=== PATIENT | male | born 1965 | race African-American/Black ===

== ENCOUNTER 2018-08-25 16:42 | Emergency (ER) | payer OTHER, SELFPAY ==
[~2018-08-25] VITALS: Ht 180.3 cm; Wt 79.0 kg
[~2018-08-25 16:42] MED LIST: ACET50TA PO; ANEX7.5T PO; IBUP100SUS PO; Xalatan OU
[2018-08-25] MEDS ORDERED: XALA0.007 (16:53)
[2018-08-25] MEDS ORDERED: TIMO0.5S29 (16:53)
[2018-08-25] MEDS ORDERED: NS 1,000 ML IV ONE (17:00)
[2018-08-25 17:11] LABS: BASO # 0.1 10^3/uL (0.0-0.2); BASO % 0.7 % (0.0-1.0); EOS # 0.1 10^3/uL (0.0-0.50); EOS % 0.7 % (0.0-3.0); HEMATOCRIT 40.9 % (42.0-52.0); HEMOGLOBIN 13.4 g/dl (13.5-17.5); LYMPH # 2.1 10^3/uL (1.5-4.5); LYMPH % 25.7 % (24.0-44.0); MEAN CORPUSCULAR HEMOGLOBIN 28.9 pg (27.0-33.0); MEAN CORPUSCULAR HGB CONC 32.8 g/dl (32.0-36.5); MEAN CORPUSCULAR VOLUME 88.3 fl (80.0-96.0); MONO # 0.9 10^3/uL (0.0-0.8); MONO % 10.8 % (0.0-5.0); NEUTROPHILS % 61.9 % (36.0-66.0); PLATELET COUNT, AUTOMATED 269 10^3/uL (150-450); RED BLOOD COUNT 4.63 10^6/uL (4.30-6.10)
--- NOTE | 2018-08-25 17:32 | REP ---
Clinical: Acute chest pain . Comparison: 08/25/2011 . Findings: The mediastinum and cardiac silhouette are stable and within normal limits for portable technique. The lung carbajal are clear without acute consolidation, effusion, or pneumothorax. Skeletal structures are intact. Impression: No acute cardiopulmonary process appreciated. Electronically Signed by Jn Mcintosh MD 08/25/2018 05:24 P
[2018-08-25 17:44] LABS: ALBUMIN 3.8 GM/DL (3.2-5.2); ALT/SGPT 29 U/L (12-78); BILIRUBIN,DIRECT 0.2 MG/DL (0.0-0.2); BILIRUBIN,TOTAL 0.5 MG/DL (0.2-1.0); BLOOD UREA NITROGEN 16 MG/DL (7-18); CALCIUM LEVEL 8.4 MG/DL (8.5-10.1); CARBON DIOXIDE LEVEL 27 MEQ/L (21-32); CHLORIDE LEVEL 107 MEQ/L (98-107); CPK CREATINE PHOSPHOKINASE 264 U/L (39-308); FREE T4 0.82 NG/DL (0.76-1.46); GLOMERULAR FILTRATION RATE > 60.0 (>56); GLUCOSE, FASTING 89 MG/DL (70-100); LIPASE 105 U/L (73-393); MB/CK RELATIVE INDEX 1.29 (< OR =4); POTASSIUM SERUM 4.1 MEQ/L (3.5-5.1); SODIUM LEVEL 140 MEQ/L (136-145); TOTAL PROTEIN 7.4 GM/DL (6.4-8.2); TROPONIN I < 0.02 NG/ML (< 0.10)
[2018-08-25] MEDS ORDERED: KETOROLAC 30 MG/ML VIAL (J1885) IV ONE (18:15)
[2018-08-25] MEDS ORDERED: ISOVUE-370 76% 100ML VIAL (Q9967) As Ordered ONE (18:16)
--- NOTE | 2018-08-25 18:42 | REP ---
Clinical: Acute chest pain. Technique: Axial contrast enhanced images from the thoracic inlet to the upper abdomen using 100 ml Isovue 370 intravenous contrast material with coronal and sagittal re-formations. Findings: Satisfactory enhancement of the pulmonary vasculature is achieved and no filling defects are identified to suggest pulmonary embolus. Thoracic aorta is normal caliber without aneurysm or dissection. Heart and pericardium are normal. Bilateral lung carbajal are well aerated and clear without acute pulmonary parenchymal consolidation or atelectasis. No nodule or mass lesion. No pleural effusion/reaction. No pneumothorax. No adenopathy. Impression: No evidence for pulmonary embolus. No acute pleuroparenchymal or mediastinal process. Electronically Signed by Jn Mcintosh MD 08/25/2018 06:33 P
[2018-08-25] MEDS ORDERED: OXYCODONE/APAP 5MG/325MG(BULK FOR ED) 1 TABLET PO ONE (19:15)
[2018-08-25] MEDS ORDERED: PERCOCET 5MG/325MG TAB PO ONE (19:15)
[2018-08-25] MEDS ORDERED: IBUP-1114 PO (19:16)
[2018-08-25 19:31] VITALS: BP 141/68
[2018-08-25] MEDS: MORPHINE 2 MG/ML 1ML SYRINGE (J2270) IV PRN ×2 (19:33→19:35)
[2018-08-25 19:35] LABS: AMPHETAMINES LEVEL URINE NEGATIVE (NEGATIVE); BARBITURATES URINE NEGATIVE (NEGATIVE); BENZODIAZEPINES URINE NEGATIVE (NEGATIVE); CANNABINOIDS URINE POSITIVE (NEGATIVE); COCAINE METABOLITE URINE NEGATIVE (NEGATIVE); METHADONE URINE NEGATIVE (NEGATIVE); OPIATES URINE NEGATIVE (NEGATIVE); PHENCYCLIDINE URINE NEGATIVE (NEGATIVE)
--- NOTE | 2018-08-25 20:12 | ECGEPIP ---
Stationary ECG Study [facility] - ED Test Date: 2018-08-25 Pat Name: PHILIPPE DIAS Department: Room: - Gender: M Manager Imaging: TC : 1965 Requested By: Joanne Kelly Order Number: [id number] Reading MD: Joanne Kelly Measurements Intervals [place] Rate: 68 P: 35 [place]: 149 QRS: 82 QRSD: 85 T: 73 QT: 366 QTc: 391 Interpretive Statements SINUS RHYTHM WITH OCCASIONAL SUPRAVENTRICULAR PREMATURE COMPLEXES ST ELEVATION, PROBABLY EARLY REPOLARIZATION, CLINICAL CORRELATION INCREASED RATE 08/25/11 Electronically Signed On 08-25-2018 20:12:40 EST by Joanne Kelly
== END 2018-08-25 19:57 | disposition home or self-care (01) ==
LOC: EDBD 16:42 → M ED 16:42
DX: R07.89 Other chest pain (principal); R06.02 Shortness of breath; H40.9 Unspecified glaucoma; Z79.899 Other long term (current) drug therapy; F17.210 Nicotine dependence, cigarettes, uncomplicated
CPT/HCPCS: 71045; 71275; 80048; 80076; 80307; 82550; 82553; 83690; 84439; 84443; 84484; 85025; 93005; 93041; 94760; 96361; 96374; 99285; J1885; Q9967

== ENCOUNTER 2022-11-22 12:32 | Emergency (ER) | payer OTHER ==
[~2022-11-22] VITALS: Ht 175.3 cm; Wt 65.7 kg
[~2022-11-22 12:32] MED LIST changes: -ACET50TA PO; +IBUP-1114 PO; +IBUP100S44 PO; -IBUP100SUS PO; +MAPA500T17 PO; +TIMO0.5S20; +XALA0.007
[2022-11-22] MEDS ORDERED: NORCO, ANEXSIA 5/325MG TABLET (HYDROcodone/ACETAMINOPHEN) PO ONE (15:00)
[2022-11-22 17:05] VITALS: BP 147/77
[2022-11-22] MEDS ORDERED: NAPR-837 PO (17:07)
[2022-11-22] MEDS ORDERED: METH-1164 PO (17:07)
== END 2022-11-22 17:16 | disposition home or self-care (01) ==
LOC: M ED 12:32
DX: S09.90XA Unspecified injury of head, initial encounter (principal); S80.211A Abrasion, right knee, initial encounter; S43.401A Unspecified sprain of right shoulder joint, initial encounter; S13.4XXA Sprain of ligaments of cervical spine, initial encounter; V09.20XA Pedestrian injured in traffic accident involving unspecified motor vehicles, initial encounter; Y92.481 Parking lot as the place of occurrence of the external cause; Y93.89 Activity, other specified; Y99.8 Other external cause status; F17.200 Nicotine dependence, unspecified, uncomplicated

== ENCOUNTER → 2022-12-15 | Outpatient (CLI) | payer OTHER ==
[~2022-12-15] MED LIST changes: +METH-1164 PO; +NAPR-837 PO
== END ==
LOC: M SOG 10:11
PROVIDERS: ATTEND Physician Assistant
DX: S40.011A Contusion of right shoulder, initial encounter (principal); V18.0XXA Pedal cycle driver injured in noncollision transport accident in nontraffic accident, initial encounter; Z53.8 Procedure and treatment not carried out for other reasons

== ENCOUNTER 2024-07-17 16:20 | Emergency (ER) | payer OTHER ==
[~2024-07-17] VITALS: Ht 180.3 cm; Wt 63.6 kg
[2024-07-17 16:32] VITALS: BP 138/88; TEMP 97.2; O2SAT 99
[2024-07-17] MEDS: KETOROLAC 30 MG/ML 1ML VIAL IV ONE (17:07)
[2024-07-17 17:13] LABS: BASO # 0.1 10^3/uL (0.0-0.2); BASO % 0.7 % (0.0-1.0); EOS # 0.1 10^3/uL (0.0-0.5); HEMATOCRIT 38.9 % (42.0-52.0); HEMOGLOBIN 13.1 g/dl (13.5-17.5); LYMPH # 1.8 10^3/uL (1.5-5.0); LYMPH % 26.1 % (24.0-44.0); MEAN CORPUSCULAR HEMOGLOBIN 29.8 pg (27.0-33.0); MEAN CORPUSCULAR HGB CONC 33.7 g/dl (32.0-36.5); MEAN CORPUSCULAR VOLUME 88.4 fl (80.0-96.0); MONO # 0.8 10^3/uL (0.0-0.8); MONO % 11.8 % (2.0-8.0); NEUTROPHILS # 4.1 10^3/uL (1.5-8.5); NEUTROPHILS % 60.3 % (36.0-66.0); PLATELET COUNT, AUTOMATED 243 10^3/uL (150-450); WHITE BLOOD COUNT 6.8 10^3/uL (4.0-10.0)
[2024-07-17 17:38] LABS: CK-MB VALUE MASS 1.1 NG/ML (<3.6)
[2024-07-17 17:39] LABS: LIPASE 33 U/L (12-53)
[2024-07-17 17:41] LABS: ALBUMIN 3.5 G/DL (3.2-5.2); ALKALINE PHOSPHATASE 78 U/L (40-129); ALT/SGPT 20 U/L (7.0-40); AST/SGOT 44 U/L (<34); BILIRUBIN,DIRECT 0.2 MG/DL (<0.4); BILIRUBIN,TOTAL 0.6 MG/DL (0.3-1.2); BLOOD UREA NITROGEN 15 MG/DL (9-23); CALCIUM LEVEL 9.2 MG/DL (8.3-10.6); CARBON DIOXIDE LEVEL 25 MMOL/L (20-31); CHLORIDE LEVEL 109 MMOL/L (98-107); CREATININE FOR GFR 0.74 MG/DL (0.70-1.30); GLOMERULAR FILTRATION RATE > 60.0 (>49); GLUCOSE, FASTING 83 MG/DL (74-106); POTASSIUM SERUM 4.3 MMOL/L (3.5-5.1); SODIUM LEVEL 138 MMOL/L (136-145); TOTAL PROTEIN 6.7 G/DL (5.7-8.2)
[2024-07-17 17:43] LABS: FREE T4 0.96 NG/DL (0.89-1.76)
[2024-07-17 17:47] LABS: CPK CREATINE PHOSPHOKINASE 109 U/L (46-171)
[2024-07-17 18:34] LABS: CK-MB VALUE MASS < 1.0 NG/ML (<3.6)
[2024-07-17 18:37] LABS: CPK CREATINE PHOSPHOKINASE 103 U/L (46-171); MB/CK RELATIVE INDEX 0.97 (< OR =4)
[2024-07-17] MEDS ORDERED: KETO10TAB PO (18:58)
== END 2024-07-17 19:11 | disposition home or self-care (01) ==
LOC: M ED 16:20
DX: R07.89 Other chest pain (principal); F41.9 Anxiety disorder, unspecified; F32.A Depression, unspecified; Z79.899 Other long term (current) drug therapy
CPT/HCPCS: 71045; 80048; 80076; 82550; 82553; 83690; 83880; 84439; 84443; 84484; 85025; 85730; 93005; 93041; 94760; 96374; 99284; J1885